=== PATIENT | female | born 1940 | race African-American/Black ===

== ENCOUNTER → 2017-04-15 | Outpatient (CLI) | payer OTHER ==
[~2017-04-15] MED LIST: LORTAB 5/500 TA1 TA1 PO; ZITHROMAX PO
--- NOTE | ~2017-04-15 | CT7 ---
[facility] A Service of [facility] RADIOLOGY TEXT RESULTS PATIENT: [facility]ENEZ[facility] UN[facility] #: [id number] AGE: [address]: Tanvir Strauss MD SEX: F ORDER DR: [id number] [facility] [address] [place], [place] [address] [id number] O MR#: [id number] Acc #: [id number] NAME: JIM MENEZES. : 1940 SEX: F STUDY DATE/TIME: 04/15/2017 13:17 UNIT: [facility] ROOM: STUDY DESCRIPTION: CT Abdomen Wo Cont Ordering Physician: Marian Strauss M.D. Primary Care Physician: Jigar Sosa Sr., M.D. MEDICAL IMAGING REPORT This report is preliminary unless electronic signature is present EXAM CT abdomen and pelvis without contrast 04/15/2017 HISTORY Elevated blood sugar level for 2 months. Recently started new medication, now blood sugar is too low. Diabetes for 25 years. Evaluate pancreas. COMPARISON No prior dedicated abdominal imaging of this institution for comparison. Correlation is made to CT chest PE protocol 08/09/2012. TECHNIQUE 5 mm noncontrast axial images through the abdomen and pelvis. Enteric contrast was not administered. Sagittal and coronal reformed images were obtained. This CT exam was performed with one or more of the following radiation dose reduction techniques: automatic exposure control, adjustment of mA and/or kV according to patient size, and iterative reconstruction. FINDINGS ABDOMEN: Lung bases are clear. Cholecystectomy changes. Noncontrast appearance of the liver, spleen, pancreas, adrenals and left kidney within normal limits. Low-density lesion projecting exophytically through the right upper renal pole measures 2.3 cm (Hounsfield units 1.62), compatible with a cyst. Normal appendix. Diverticular changes are present within the ascending colon, but there is no evidence of acute diverticulitis. No renal or ureteral stone, hydronephrosis, hydroureter, perinephric inflammation is seen. There is ghgd-pd-dhjehtse calcification within the abdominal aorta, without aneurysm. [facility] A Service of [facility] & [facility] RADIOLOGY TEXT RESULTS PATIENT: [facility]ENEZ[id number] 44 UNIT #: [id number] AGE: [address]: Tanvir Strauss MD SEX: F ORDER DR: With respect to the pancreas, pancreatic parenchyma is unremarkable noncontrast appearance does not appear particularly atrophic, and does not appear frankly steatotic. Advanced degenerative disc endplate changes are present, greatest at L2-3, L3-4, T10-11, T9-10. Lower lumbar facet arthropathy is also present. No acute osseous abnormalities are identified. IMPRESSION 1. Normal noncontrast appearance of the pancreas. 2. No acute findings in the abdomen. 3. Right renal cyst. 4. Uncomplicated colonic diverticulosis. 5. Cholecystectomy. 6. 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 Dictated by... Sherrie Cardenas M.D. THIS IS AN ELECTRONICALLY VERIFIED REPORT Sherrie Cardenas M.D. at 04/20/2017 8:44 AM LAURENCE/lory TD: 04/15/2017 22:40 JOB #: [id number] MEDICAL IMAGING REPORT Page 1 of 1 COPY
== END | disposition home or self-care (01) ==
LOC: CCAT 13:00
DX: E11.649 Type 2 diabetes mellitus with hypoglycemia without coma (principal); N28.1 Cyst of kidney, acquired; K57.30 Diverticulosis of large intestine without perforation or abscess without bleeding; M47.895 Other spondylosis, thoracolumbar region; Z90.49 Acquired absence of other specified parts of digestive tract
CPT/HCPCS: 74150